=== PATIENT | male | born 1980 | race Caucasian/White ===

== ENCOUNTER 2022-02-05 22:07 | Emergency (ER) | payer OTHER ==
[~2022-02-05] VITALS: Ht 182.9 cm; Wt 103.0 kg
[2022-02-05 22:39] VITALS: BP 147/106
--- NOTE | 2022-02-05 22:43 | NUR ---
PT TO EMMABYBHUPENDRA.
--- NOTE | 2022-02-05 22:49 | NUR ---
PT AMBULATED TO ED 12, REPORT GIVEN TO EDGARDO MARINO.
[2022-02-05] MEDS ORDERED: MORPHINE SULFATE 4 MG/ML SYR IVP ONE ×2 (22:55→23:55)
[2022-02-05] MEDS ORDERED: ONDANSETRON 4 MG/2 ML VIAL IVP ONE (22:55)
--- NOTE | 2022-02-05 23:00 | NUR ---
41/M BIB SELF C/C RUQ ABD PAIN X1 DAY. PATIENT REPORTS INCREASING SHARP 9/10 PAIN . +N/D/C . DENIES FEVER/CHILLS/VOMITING. PATIENT BOWEL SOUNDS ACTIVE X4Q. APPEARS TO BE GUARDING ABD. TOOK IBUPROFEN WITH SOME RELIEF. PLACED IN GOWN AND MONITOR. PADDY SIDE RAILS FOR SAFETY. PMHX ULCERATIVE COLITIS DENIES RX NKA
--- NOTE | 2022-02-05 23:10 | NUR ---
PATIENT MEDICATED PER ORDERS. TOLERATED WELL
--- NOTE | 2022-02-05 23:12 | NUR ---
IV ESTABLISHED BLOOD COLLECTED. BLOOD AND URINE HANDED TO LAB
[2022-02-05 23:18] LABS: BASOPHILS # (AUTO) 0.1 K/uL (0.00-0.22); BASOPHILS % (AUTO) 0.8 % (0.0-2.0); EOSINOPHILS # (AUTO) 0.1 K/uL (0-0.4); EOSINOPHILS % (AUTO) 1.7 % (0.0-4.0); HEMATOCRIT 42.9 % (36-52); HEMOGLOBIN 14.7 g/dL (12.0-18.0); LYMPHOCYTES # (AUTO) 2.6 K/uL (2.0-11.5); LYMPHOCYTES % (AUTO) 31.5 % (20.5-51.1); MEAN CORPUSCULAR HEMOGLOBIN 29 pg (27-31); MEAN CORPUSCULAR HGB CONC 34 g/dL (33-37); MEAN CORPUSCULAR VOLUME 85.5 fL (80-94); MONOCYTES # (AUTO) 0.9 K/uL (0.8-1.0); MONOCYTES % (AUTO) 10.7 % (1.7-9.3); NEUTROPHILS # (AUTO) 4.5 K/uL (1.8-7.7); NEUTROPHILS % (AUTO) 55.3 % (42.2-75.2); PLATELET COUNT (AUTO) 195 K/uL (140-450); RED BLOOD CELL COUNT(AUTO) 5.02 MIL/uL (4.20-6.10); RED CELL DISTRIBUTION WIDTH 13.6 % (11.6-13.7); WHITE BLOOD COUNT (AUTO) 8.2 K/uL (4.8-10.8)
[2022-02-05 23:23] LABS: APPEARANCE,URINE CLEAR (CLEAR); BILIRUBIN,URINE NEGATIVE (NEGATIVE); BLOOD, URINE TRACE-I (NEGATIVE); COLOR,URINE YELLOW (YELLOW); LEUKOCYTE ESTERASE ,URINE NEGATIVE (NEGATIVE); NITRITE, URINE NEGATIVE (NEGATIVE); UGLUCOSE NEGATIVE (NEGATIVE)
[2022-02-05 23:37] LABS: BARBITURATE, URINE NEGATIVE ng/ml (NEG <=200); BENZODIAZEPINE, URINE NEGATIVE ng/mL (NEG <=200); CANNABINOID, URINE NEGATIVE ng/mL (NEG <=50); COCAINE, URINE NEGATIVE ng/mL (NEG <=300); OPIATE, URINE NEGATIVE ng/mL (NEG <=2000); PHENCYCLIDINE SCREEN,URINE NEGATIVE ng/mL (NEG <=25)
[2022-02-05 23:38] LABS: RBC,URINE 0-5 /HPF (0-5); WBC,URINE 0-5 /HPF (0-5)
[2022-02-05 23:39] LABS: ALBUMIN 3.5 g/dL (3.4-5.0); ANION GAP 10.9 (8-16); CREATININE 0.9 mg/dL (0.6-1.3); POTASSIUM 3.9 mmol/L (3.5-5.1); TOTAL BILIRUBIN 0.4 mg/dL (0.0-1.0)
[2022-02-05] MEDS ORDERED: KETOROLAC 30 MG/ML VIAL IVP ONE (23:55)
--- NOTE | 2022-02-05 23:55 | NUR ---
PATIENT C/O SHARP 8/10 RUQ PAIN. MD RODRIGUEZ MADE AWARE. ORDERS CARRIED OUT.
--- NOTE | 2022-02-06 00:10 | NUR ---
JESSICA RODRIGUEZ AT BEDSIDE
--- NOTE | 2022-02-06 01:23 | NUR ---
pt taken to ct via w/c
--- NOTE | 2022-02-06 01:30 | NUR ---
PT RETURN FROM CT
--- NOTE | 2022-02-06 02:38 | NUR ---
PATIENT RESTING IN BED. STATED THAT PAIN IS 3/10 AND TOLERABLE. ALL NEEDS MET.
[2022-02-06] MEDS ORDERED: ACET-10509 PO (03:58)
[2022-02-06] MEDS ORDERED: BEN10 PO (03:58)
[2022-02-06 04:20] VITALS: BP 125/63
--- NOTE | 2022-02-06 04:20 | NUR ---
Patient discharged with v/s stable. Written and verbal after care instructions given and explained. Patient alert, oriented and verbalized understanding of instructions. Ambulatory with steady gait. All questions addressed prior to discharge. ID band removed. Patient advised to follow up with PMD. Rx of bentyl and acetaminophen given. Patient educated on indication of medication including possible reaction and side effects. Opportunity to ask questions provided and answered.
[2022-02-06] MEDS ORDERED: DOCU-299 PO (20:05)
[2022-02-06] MEDS ORDERED: ACET-8386 PO (20:05)
== END 2022-02-06 04:20 | disposition home or self-care (01) ==
LOC: MED 22:07
DX: R10.9 Unspecified abdominal pain (principal); F17.210 Nicotine dependence, cigarettes, uncomplicated; Z90.49 Acquired absence of other specified parts of digestive tract
CPT/HCPCS: 36415; 74176; 80053; 80305; 81001; 83690; 85025; 96374; 96375; 96376; 99284; J1885; J2270; J2405

== ENCOUNTER 2022-02-06 18:37 | Emergency (ER) | payer OTHER ==
[~2022-02-06] VITALS: Ht 182.9 cm; Wt 102.1 kg
[~2022-02-06 18:37] MED LIST: ACET-10509 PO; BEN10 PO
[2022-02-06 19:01] VITALS: BP 127/77
--- NOTE | 2022-02-06 19:38 | NUR ---
JESSICA LOVELL AT BEDSIDE EXAMINING PT.
[2022-02-06] MEDS ORDERED: KETOROLAC 60 MG/2 ML VIAL IM ONE (19:45)
--- NOTE | 2022-02-06 19:45 | NUR ---
41/M BIB SELF C/C RUQ ABD PAIN X2DAYS. SHA WAS HERE THIS MORNING WITH SAME C/C. STATED THAT HIS PCP COULDNT SEE HIM TODAY SO HE CAME IN FOR A FOLLOW UP. STATED THAT THE PAIN MEDICATION HE WAS GIVEN WASNT GIVING HIM RELIEF. PMHX ULCERATIVE COLITIS NKA
[2022-02-06] MEDS ORDERED: DOCU-299 PO (20:05)
[2022-02-06] MEDS ORDERED: ACET-8386 PO (20:05)
[2022-02-06 20:28] VITALS: BP 134/75
--- NOTE | 2022-02-06 20:28 | NUR ---
Patient discharged with v/s stable. Written and verbal after care instructions given and explained. Patient alert, oriented and verbalized understanding of instructions. Ambulatory with steady gait. All questions addressed prior to discharge. ID band removed. Patient advised to follow up with PMD. Rx of COLACE, AND HYDROCODONE-ACETAMINOPHEN given. Patient educated on indication of medication including possible reaction and side effects. Opportunity to ask questions provided and answered.
== END 2022-02-06 20:28 | disposition home or self-care (01) ==
LOC: MED 18:37
DX: R10.9 Unspecified abdominal pain (principal); F17.200 Nicotine dependence, unspecified, uncomplicated; Z90.49 Acquired absence of other specified parts of digestive tract; Z79.899 Other long term (current) drug therapy
CPT/HCPCS: 96372; 99283; J1885